=== PATIENT | female | born 1945 | race Caucasian/White ===

== ENCOUNTER 2022-11-11 10:39 | Emergency (ER) | payer MEDICARE, SELFPAY ==
--- NOTE | ~2022-11-11 | XR_ITS ---
EXAMINATION: XR chest 1V CLINICAL INFORMATION: Reason for Exam coughing. Pneumonia? COMPARISON: Chest radiograph 04/10/2008 TECHNIQUE: One view of the chest FINDINGS: Clear lungs. No pneumothorax or pleural effusion. Ectatic thoracic aorta. Normal cardiac silhouette. XR/XR chest 1V IMPRESSION: * Clear lungs. * Ectatic thoracic aorta. Normal cardiac silhouette.
[2022-11-11 11:17] VITALS: BP 136/73; PULSE 88; RESP 20; TEMP 36.6; O2SAT 100; BMI 34.0
--- NOTE | 2022-11-11 11:26 | ED_ITS ---
HPI - URI/Sore Throat
--- NOTE | 2022-11-11 11:26 | ED.URI ---
HPI - URI/Sore Throat General Chief Complaint: Upper Respiratory Symptoms Stated Complaint: Throat closing/Cough Time Seen by Provider: 11/11/22 12:55 Source: patient Mode of arrival: ambulatory Limitations: no limitations History of Present Illness HPI Narrative: 77-year-old female presents to ED for sore throat coughing, body aches, fever, and chills. She states her children also sick. Related Data Allergies Allergy/AdvReac Type Severity Reaction Status Date / Time No Known Allergies Allergy Verified 11/11/22 11:20 Review of Systems Review of Systems: URI symptoms Yes all other systems are reviewed and are negative [facility] Social History Social History Advance Directives: No Advance Directives Information Provided: Yes Physical Exam Vital Signs: Vital Signs: Last Vital Signs Temp 97.8 F 11/11/22 11:17 Pulse 88 11/11/22 11:17 Resp 20 11/11/22 11:17 BP 136/73 11/11/22 11:17 Pulse Ox 100 11/11/22 11:17 O2 Del Method 11/11/22 11:17 BMI result Body Mass Index 34.0 Const: General: cooperative, healthy appearing, comfortable, no acute distress, well developed, alert, awake and Physically active Orientation/consciousness: oriented to person, oriented to place, oriented to time and patient oriented x3 HEENT: Head: Yes normal to inspection, Yes No palpable skull fracture present, Yes normocephalic, Yes atraumatic and No abrasion Ears: hearing grossly normal bilaterally, external ears normal, TM's normal bilaterally, EAC's normal, mastoids normal and no periauricular adenopathy Face and sinus: Yes normal facial exam and Yes sinuses nontender Teeth and gingiva: dentition normal and gingiva normal Throat: Yes posterior oropharynx normal, Yes tonsils normal and Yes uvula midline Eyes: General: appearance normal, both eyes and all related structures Neck: Neck: Yes normal visual inspection, Yes full ROM, Yes no lymphadenopathy, Yes no meningeal signs, Yes trachea midline, Yes supple, No anterior neck swelling and No tender Chest: Chest palpation & inspection: normal inspection of the chest and normal palpation of entire chest wall Resp: Effort & Inspection: normal respiratory effort and able to speak in complete sentences Auscultation: clear to auscultation bilaterally Cardio: Jugular venous distension: no JVD Heart sounds: S1 normal heart sound present and S2 normal heart sound present GI: Inspection: Yes normal to inspection and No abdominal wall ecchymosis Palpation (GI): Soft to palpation, not firm, nontender, no guarding and not rigid : General: No CVA tenderness and Yes no CVA tenderness Back/Spine/Pelvis: Back: no CVA tenderness, No CVA tenderness and No back tenderness Skin: General skin exam: no rashes or lesions noted and elasticity normal Neuro: General: oriented to person, oriented to place, oriented to time, patient oriented x3, gait normal, tone normal, moves all extremities, Normal light touch and pain sensation, no meningeal signs, no focal motor deficits, CN's II-XI intact bilaterally and normal sensation to monofilament Extrem: General: Yes normal to inspection and Yes full ROM Psych: Appearance: grossly normal, well kempt and not disheveled Course Course Course Narrative: DARLEEN; 77-year-old female presenting with sore throat, coughing, body aches, subjective fever, and chills. Family has similar symptoms. Patient denies any chest pain shortness of breath. Patient denies any rash. Patient denies any itchiness. Vital signs stable. Oral exam negative for signs of peritonsillar abscess, uvular swelling, tongue swelling, lip swelling, drooling, change in voice. SARs, strep, and chest x-ray ordered. Reevaluation(s) Reevaluation #1: Positive RSV pending chest x-ray Time: 13:11 Reevaluation #2: Chest x-ray normal. Patient is safe for discharge Medical Decision Making Lab Data Labs: Lab Results 11/11/22 11/11/22 Range/Units 11:24 11:24 Influenza Type A (PCR) NEGATIVE (Negative) Influenza Type B (PCR) NEGATIVE (Negative) RSV RNA Qual (PCR) POSITIVE A (Negative) SARS-CoV-2 RNA (RT-PCR) NEGATIVE (Negative) S. pyogenes GrpA DEAN Negative (Negative) Discharge Plan Discharge Clinical Impression: Respiratory syncytial virus (RSV) Patient Disposition: Home, Self-Care Instructions: Respiratory Syncytial Virus (ED) Additional Instructions: Eres positivo para RSV. Por favor, jan un seguimiento con el PCP. Regrese al servicio de urgencias de inmediato si tiene dolor en el pecho, dificultad para respirar, debilidad, mareos o cualquier otro s?ntoma preocupante. Interventions: ED Discharge Assessment Last Done: 11/11/22 13:21 Discharge Date/Time: 11/11/22 13:24 Print Language: Malagasy
[2022-11-11 11:46] LABS: Strep A Nucleic Acid Negative (Negative)
[2022-11-11 12:10] LABS: Influenza A PCR NEGATIVE (Negative); Influenza B PCR NEGATIVE (Negative); Resp Syncy Virus RNA Qual PCR POSITIVE (Negative); SARS COV2 PCR INHOUSE NEGATIVE (Negative)
== END 2022-11-11 13:24 | disposition home or self-care (01) ==
PROVIDERS: Emergency Provider Emergency Medicine; PCP Internal Medicine
DX: J02.8 Acute pharyngitis due to other specified organisms (principal); B97.4 Respiratory syncytial virus as the cause of diseases classified elsewhere; Z20.822 Contact with and (suspected) exposure to COVID-19
CPT/HCPCS: 0241U; 71045; 87651; 99282; 99283

== ENCOUNTER → 2023-03-13 12:58 | Outpatient (BNVA) | payer OTHER, SELFPAY | PROVIDERS: PCP Internal Medicine; Visit Provider Psychiatry & Neurology Neurology | DX: R41.89 Other symptoms and signs involving cognitive functions and awareness (principal) | CPT/HCPCS: 99202 ==

== ENCOUNTER 2025-10-21 10:25 | Outpatient (AMB) | payer OTHER, SELFPAY ==
[2025-10-21 11:17] VITALS: BMI 40.6
--- NOTE | 2025-10-21 11:17 | A.PHYSOV_ITS ---
Vital Signs 10/21/25 11:17 Height 5 ft Weight 208 lb BMI 40.6 Intake Visit Reasons: NPV Ana Ref-acute low back pain Intake Note: Patient is a 80 year old female here today for a new patient . Patient has been referred for acute lower back pain after a fall. Customer Advisor Specialist Name: daughter here with her- oscar Allergies No Known Allergies Allergy (Verified 03/13/23 13:06) HPI Comments Details: History of Present Illness The patient is a 80-year-old female presenting for evaluation of back pain. She has a history of severe spinal cord compression confirmed on a prior MRI. Her pain is located in the center of her back, is worse with standing in one place, and radiates into her legs, with the left leg being more affected. The patient experiences symptom relief when leaning forward, such as when she pushes a grocery cart or uses a cane to lean on. She has previously attended 8 sessions of physical therapy and decided to continue with exercises at home. For pain management, she has used high goal patches. I reviewed the referring provider's no prior to consultation. Pain Description - Location: Pain is in the center of the back. - Radiation: The pain radiates into her legs, with more pain noted in the left leg. - Exacerbating factors: Pain is worse when standing in one place, walking, and leaning back. - Relieving factors: Pain is improved by leaning forward, such as when using a cane or pushing a grocery cart. Results - Imaging: - MRI: Revealed severe compression of the spinal cord. [facility] Medical History (Updated 10/24/25 @ 08:52 by NAOMIE Koch) Cognitive change Vertigo Hyperlipidemia HTN (hypertension) Surgical History History of cataract surgery H/O hemorrhoidectomy History of knee replacement Family History (Updated 03/13/23 @ 13:11 by REID Diana) Mother Intestinal cancer Father Alzheimer disease Social History Alcohol intake: never Patient Tobacco Use Status: Never used Tobacco Review of Systems Narrative Review of Systems - Musculoskeletal: Reports back pain. - Neurological: Reports pain that radiates into her legs. Physical Exam Exam Exam: Physical Exam Lumbar Spine: She is tender to lower lumbar facets. She is otherwise nontender. Full range of motion of the lumbar spine. She does have an increase in pain with facet loading. Special Tests: Lhermittes sign was negative Heel Toe walk is normal Left straight leg raise: Negative Right straight leg raise: Negative Special tests Zane test is negative Ganslen's test is negative SI Joint compression test negative Flora test negative Piriformis stretch is negative Lower Extremities: Full range of motion bilateral lower extremities. No calf pain or edema. Neuro: Sensation: Intact to lower extremities bilaterally Strength L2 (Psoas): 5/5 on the left and 5/5 on the right. L3 (Quads): 5/5 on the left and 5/5 on the right. L4 (Ant tibialis): 5/5 on the left and 5/5 on the right. L5 (EHL) 5/5 on the left and 5/5 on the right. S1 (Gastroc): 5/5 on the left and 5/5 on the right. DTR L4: (Patellar) Left 1 Right 1 S1: (Achilles) Left 1 Right 1 Babinski Downgoing No pathologic clonus. No involuntary movement. Vital Signs: BMI result Body Mass Index 40.6 Assessment & Plan Assessment & Plan (1) Lumbar radiculopathy: Code(s): M54.16 - Radiculopathy, lumbar region Category: Medical (2) Spinal stenosis: Code(s): M48.00 - Spinal stenosis, site unspecified Category: Medical Qualifiers: Spinal region: lumbar Neurogenic claudication status: without neurogenic claudication Qualified Code(s): M48.061 - Spinal stenosis, lumbar region without neurogenic claudication Plan Pain Management - Analgesia: The patient uses high goal patches for pain and was advised she could take Tylenol. - Activities of Daily Living: Her pain is worse with standing and walking but is improved by leaning forward, which helps her with activities like grocery shopping. Plan Patient was informed and verbally consented to the use of an ambient scribe for clinic note documentation during this visit. 1. Spinal Stenosis The patient's symptoms are consistent with neurogenic claudication secondary to severe spinal cord compression noted on her MRI, which is a structural problem. It was explained that interventions like physical therapy or healthcare facility administrator are unlikely to resolve the underlying issue. Chiropractic manipulation was not recommended. Treatment options, including epidural cortisone injections and surgery, were discussed. Conservative management was recommended, including continuing home exercises, using a walker while leaning forward, and taking Tylenol. The patient and her daughter will consider the options and will call back if she decides to pursue more definitive intervention. Discussion Notes I explained to the patient and her daughter that her MRI shows severe compression of the spinal cord, which is a structural problem causing her symptoms. I discussed how leaning back worsens the compression while leaning forward alleviates it, making the use of a shopping cart or walker beneficial. I advised that while physical therapy is helpful, it and healthcare facility administrator are unlikely to solve the underlying structural issue, and I recommended against chiropractic manipulation. We reviewed treatment options including epidural cortisone injections and surgery. For now, I recommended conservative measures such as continuing exercises, using a walker, and taking Tylenol. They understood the information and will follow up if they wish to proceed with further treatment. I would recommend left L4 TFESI if she would like to pursue epidural injection. Follow-up with our office as needed. Patient Instructions - Continue to do your exercises at home. - You can get a walker and lean forward on it to help with your pain when walking. - It is helpful to lean on the shopping cart when you go to the store. - You can take Tylenol for pain. - We discussed other treatments like injections or surgery that can be considered if your pain does not improve. - Please call us back if you decide you would like to proceed with one of these treatments. Coding Level of Care Code Tele New Pt Level 3 (68037) Diagnoses Lumbar radiculopathy M54.16 Spinal stenosis of lumbar region without neurogenic claudication M48.061 Spinal region: lumbar Neurogenic claudication status: without neurogenic claudication
== END 2025-10-21 11:54 | disposition home or self-care (01) ==
LOC: HO.HPHYS 10:25
PROVIDERS: PCP Internal Medicine; Visit Provider Physician Assistant
DX: M54.16 Radiculopathy, lumbar region (principal); M48.061 Spinal stenosis, lumbar region without neurogenic claudication
CPT/HCPCS: 99203

== ENCOUNTER → 2025-10-21 10:25 | Outpatient (BNVA) | payer OTHER, SELFPAY | PROVIDERS: PCP Internal Medicine; Visit Provider Physician Assistant | DX: M48.061 Spinal stenosis, lumbar region without neurogenic claudication (principal); M54.16 Radiculopathy, lumbar region | CPT/HCPCS: 99202 ==